=== PATIENT | male | born 1965 ===

== ENCOUNTER → 2024-11-27 12:41 | Outpatient (REF) | payer BC, SELFPAY | LOC: MRI 12:41 | PROVIDERS: ATTENDING PHYSICIAN Family Medicine | DX: R97.20 Elevated prostate specific antigen [PSA] (principal) | CPT/HCPCS: 72197; A9575 ==

== ENCOUNTER → 2025-07-13 19:14 | Outpatient (REF) | payer BC, SELFPAY | LOC: MRI 3T 19:14 | PROVIDERS: ATTENDING PHYSICIAN Student in an Organized Health Care Education/Training Program; FAMILY PHYSICIAN Family Medicine | DX: N40.1 Benign prostatic hyperplasia with lower urinary tract symptoms (principal); N13.8 Other obstructive and reflux uropathy | CPT/HCPCS: 72197; A9575 ==